=== PATIENT | female | born 1945 | race Caucasian/White ===

== ENCOUNTER 2021-09-02 17:04 | Emergency (ER) | payer OTHER ==
--- OUTSIDE RECORDS SUMMARY | 2021-09-02 17:07 | XMS REPORT | Continuity of Care Document ---
:1945 Author Organization [facility] t Address [facility]3 [address] [place] [address] Care Team Providers Name Role Phone Justino Sotomayor DO Primary Care Physician Charli Attending Clinician Unavailable Sotero Attending Clinician Unavailable Charli Admitting Clinician Unavailable Sotero Admitting Clinician Unavailable Payers Payer Name Policy Type Policy Number Effective Date Expiration Date S jonatanFormerly [facility] [place] [id number] (MEDICARE 00:00:00 REPLACEMENT/ADVANTA GE - HMO) MEDIC[place] B-[place]: [id number] 2012 Get[employer]ugu 00:00:00 [facility] - AARP - [id number] MEDICARE SOLUTIONS - MEDICARE COMPLETE (MEDICARE REPLACEMENT PPO) [employer] (MEDICARE [id number] REPLACEMENT/ADVANTA GE - PPO) Problems Condition Condition Condition Status Onset Resolution Last Treating Co mments Source Name Details Category Date Date Treatment Clinician Date Hypokalemi Hypokalemi Problem Active M [facility] a a 2-28 da 00:00: Medical 00 Group Type 2 Type 2 Problem Active [place] diabetes Diabetes 2-23 da mellitus Mellitus 00:00: Medica l without without 00 Group complicati Complicati on on Pruritus Pruritus Problem Active [place] of skin of Skin 2-23 da 00:00: Medical 00 Group 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 00:00: Medical syndrome Syndrome 00 Group 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 e Raised 00:00: Medica l 00 Group Seborrheic Seborrheic Problem Active M [facility] dermatitis Dermatitis 2-14 da of scalp of Scalp 00:00: Medica l 00 Group Diabetes Diabetes Problem Active 2018-05 [place] mellitus Mellitus 1-12 da 00:00: Medical 00 Group Neuropathy Neuropathy Problem Active 2018-05 M [facility] 112 da 00:00: Medical 00 Group Gastroesop Gastroesop Problem Active 2018-05 M [facility] hageal hageal 1-12 da reflux Reflux 00:00: Medical disease Disease 00 Group Malignant Malignant Problem Active [facility] lymphoma Lymphoma da Medical Group Type 2 Type 2 Problem Active [place] diabetes Diabetes da mellitus Mellitus Medica l Group Hyperlipid Hyperlipid Problem Active M [facility] emia emia [facility] Sinusitis Sinusitis Problem Active [place] [facility] Congestion Congestion Problem Active M [facility] of nasal of Nasal da sinus Sinus Medical Group Pneumonia Pneumonia Problem Active [facility] Acute Acute Problem Active [place] respirator Respirator da y y Medical infections Infections Gr oup Gastritis Gastritis Problem Active [facility] 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 Social History Social Habit Start Date Stop Date Quantity Comments Source Sex Assigned At [facility] Alcohol intake 2016-03-09 2016-03-09 Current [facility] es - 00:00:00 00:00:00 non-drinker of Medical Ce nter alcohol (finding) Smoking Status Start Date Stop Date Source Former Smoker [facility] Never smoker [facility] Medications Ordered Filled Start Stop Current Ordering Indication Dosage Frequency Signature Comments Components Source Medication Medication Date Date Medication? Clinician (SIG) Name Name frida 2015-05 Yes 1000mg QD Take 1,[address] bark 500 mg 0-28 [facility] - capsule 09:13: mouth Medical 12 daily. [place] chromium 2015-05 Yes Take by [facility] picolinate 0-28 [facility]. [facility] - 200 mcg Cap 09:13: Medica l 12 [place] melatonin 3 2015-05 Yes Take by [facility] mg Tab 0-28 [facility]. [facility] - 09:13: Medical 12 [place] aspirin 81 2015-05 Yes 162mg QD Take [address] MG EC 0-28 mg by [facility] - tablet 09:13: mouth Medical 12 daily. [place] insulin 2015-05 Yes 18U QD Inject 18 [facility] glargine 0-28 Units [facility] - (LANTUS) 09:13: subcutaneo Med ical 100 unit/mL 12 usly [place] injection nightly Use as directed . multivitami 2015-05 Yes 1{tbl} QD Take [address] n per 0-28 tablet by [facility] - tablet 09:13: mouth Medical 12 daily. [place] insulin 2015-05 Yes 4U Inject [address] aspart 0-28 Units [facility] - (NOVOLOG) 09:13: subcutaneo Me dical 100 unit/mL [address] [place] [address] InPn (three) times daily with meals. omeprazole 2015-05 Yes 20mg QD Take [address] (PRILOSEC) 0-28 by mouth [facility] - 20 MG 09:13: daily. Medical capsule 12 [place] cinnamon 2015-05 Yes 1000mg QD Take 1,[address] bark 500 mg 0-28 mg by [facility] - capsule 09:13: mouth Medical 12 daily. [place] chromium 2015-05 Yes Take by [facility] picolinate 0-28 mouth. [facility] - 200 mcg Cap 09:13: Medica l 12 [facility] 2015-05 Yes 1000mg QD Take 1,[address] bark 500 mg 0-28 mg by [facility] - capsule 09:13: mouth Medical 12 daily. [place] melatonin 3 2015-05 Yes Take by [facility] mg Tab 0-28 mouth. [facility] - 09:13: Medical 12 [place] aspirin 81 2015-05 Yes 162mg QD Take [address] MG EC 0-28 mg by [facility] - tablet 09:13: mouth Medical 12 daily. [place] insulin 2015-05 Yes 18U QD Inject 18 [facility] glargine 0-28 Units [facility] - (LANTUS) 09:13: subcutaneo Med ical 100 unit/mL 12 usly Center injection nightly Use as directed . multivitami 2015-05 Yes 1{tbl} QD Take [address] n per 0-28 tablet by [facility] - tablet 09:13: mouth Medical 12 daily. [place] insulin 2015-05 Yes 4U Inject [address] aspart 0-28 Units [facility] - (NOVOLOG) 09:13: subcutaneo Me dical 100 unit/mL 12 usly 3 [place] InPn (three) times daily with meals. omeprazole 2015-05 Yes 20mg QD Take [address] (PRILOSEC) 0-28 by mouth [facility] - 20 MG 09:13: daily. Medical capsule 12 [place] cinnamon 2015-05 Yes 1000mg QD Take 1,[address] bark 500 mg 0-28 mg by [facility] - capsule 09:13: mouth Medical 12 daily. [place] chromium 2015-05 Yes Take by [facility] picolinate 0-28 mouth. [facility] - 200 mcg Cap 09:13: Medica l 12 [place] melatonin 3 2015-05 Yes Take by [facility] mg Tab 0-28 mouth. [facility] - 09:13: Medical 12 [place] aspirin 81 2015-05 Yes 162mg QD Take [address] MG EC 0-28 mg by [facility] - tablet 09:13: mouth Medical 12 daily. [place] chromium 2015-05 Yes Take by [facility] picolinate 0-28 mouth. [facility] - 200 mcg Cap 09:13: Medica l 12 [place] insulin 2015-05 Yes 18U QD Inject 18 [facility] glargine 0-28 Units [facility] - (LANTUS) 09:13: subcutaneo Med ical 100 unit/mL 12 usly Center injection nightly Use as directed . multivitami 2015-05 Yes 1{tbl} QD Take [address] n per 0-28 tablet by [facility] - tablet 09:13: mouth Medical 12 daily. [place] insulin 2015-05 Yes 4U Inject [address] aspart 0-28 Units [facility] - (NOVOLOG) 09:13: subcutaneo Me dical 100 unit/mL 12 usly 3 [place] InPn (three) times daily with meals. omeprazole 2015-05 Yes 20mg QD Take [address] (PRILOSEC) 0-28 by mouth [facility] - 20 MG 09:13: daily. Medical capsule 12 Center melatonin 3 2015-05 Yes Take by [facility] mg Tab 0-28 mouth. [facility] - 09:13: Medical 12 [place] aspirin 81 2015-05 Yes 162mg QD Take [address] MG EC 0-28 mg by [facility] - tablet 09:13: mouth Medical 12 daily. [place] insulin 2015-05 Yes 18U QD Inject 18 [facility] glargine 0-28 Units [facility] - (LANTUS) 09:13: subcutaneo Med ical 100 unit/mL 12 usly Center injection nightly Use as directed . multivitami 2015-05 Yes 1{tbl} QD Take [address] n per 0-28 tablet by [facility] - tablet 09:13: mouth Medical 12 daily. [place] insulin 2015-05 Yes 4U Inject [address] aspart 0-28 Units [facility] - (NOVOLOG) 09:13: subcutaneo Me dical 100 unit/mL 12 usly 3 [place] In (three) times daily with meals. omeprazole 2015-05 Yes 20mg QD Take [address] (PRILOSEC) 0-28 by mouth [facility] - 20 MG 09:13: daily. Medical capsule 12 [place] gabapentin 2015-05 Yes 300mg Q.[id number] Take [address] (NEURONTIN) 0-28 [id number] mg by L ukes - 300 MG 09:12: 3D mouth 3 Medical capsule 25 (three) Center times daily. gabapentin 2015-05 Yes 300mg Q.[id number] Take [address] (NEURONTIN) 0-28 [id number] mg by L ukes - 300 MG 09:12: 3D mouth 3 Medical capsule 25 (three) Center times daily. gabapentin 2015- Yes 300mg Q.[id number] Take [address] (NEURONTIN) 0-28 [id number] mg by L ukes - 300 MG 09:12: 3D mouth 3 Medical capsule 25 (three) Center times daily. gabapentin 2015-05 Yes 300mg Q.[id number] Take [address] (NEURONTIN) 0-28 [id number] mg by L ukes - 300 MG 09:12: 3D mouth 3 Medical capsule 25 (three) Center times daily. alendronate alendronate No alendronat [place] 70 mg 70 mg e 70 mg da tablet TAKE tablet TAKE tablet Medical 1 TABLET BY 1 TABLET BY TAKE 1 Group MOUTH EVERY MOUTH EVERY TABLET BY WEEK WEEK MOUTH EVERY WEEK Farxiga 10 Farxiga 10 No Farxiga 10 [place] mg tablet mg tablet mg tablet da TAKE 1 TAKE 1 TAKE 1 Medical TABLET BY TABLET BY TABLET BY Group MOUTH EVERY MOUTH EVERY MOUTH DAY DAY EVERY DAY gabapentin gabapentin No gabapentin [place] 300 mg 300 mg 300 mg da capsule capsule capsule Medica l TAKE 2 TAKE 2 TAKE 2 Group TABLETS BY TABLETS BY TABLETS BY MOUTH TWICE MOUTH TWICE MOUTH DAILY DAILY TWICE DAILY ketoconazol ketoconazol No ketoconazo [place] e 2 % e 2 % le 2 % da shampoo shampoo shampoo Medica l APPLY TO APPLY TO APPLY TO Do up THE THE THE AFFECTED AFFECTED AFFECTED AREA(S), AREA(S), AREA(S), LATHER, LATHER, LATHER, LEAVE IN LEAVE IN LEAVE IN PLACE FOR [address] FOR MINUTES, MINUTES, 5 MINUTES, AND THEN AND THEN AND THEN RINSE OFF RINSE OFF RINSE OFF WITH WATER WITH WATER WITH WATER BY TOPICAL BY TOPICAL BY TOPICAL ROUTE ONCE ROUTE ONCE ROUTE ONCE DAILY DAILY DAILY levetiracet levetiracet No levetirace [place] am 500 mg am 500 mg mathew 500 mg da tablet TAKE tablet TAKE tablet Medical 1 TABLET BY 1 TABLET BY TAKE 1 Group MOUTH TWICE MOUTH TWICE TABLET BY DAILY DAILY MOUTH TWICE DAILY memantine 5 memantine 5 No memantine [place] mg tablet mg tablet 5 mg da TAKE 1 TAKE 1 tablet Medical TABLET BY TABLET BY TAKE 1 Do up MOUTH EVERY MOUTH EVERY TABLET BY DAY DAY MOUTH EVERY DAY metformin metformin No metformin [place] 500 mg 500 mg 500 mg da tablet TAKE tablet TAKE tablet Medical 1 TABLET BY 1 TABLET BY TAKE 1 Group MOUTH TWICE MOUTH TWICE TABLET BY DAILY DAILY MOUTH TWICE DAILY mirtazapine mirtazapine No mirtazapin [place] 15 mg 15 mg e 15 mg da tablet Take tablet Take tablet Medical 1 tablet 1 tablet Take 1 Group every day every day tablet by oral by oral every day route at route at by oral bedtime for bedtime for route at 30 days. 30 days. bedtime for 30 days. naproxen naproxen No naproxen [place] take one take one take one da bid bid bid Medical Group Os-Travis 500 Os-Travis 500 No 1 BID Os-Travis 500 [place] + D3 500 + D3 500 + D3 500 da mg-15 mcg mg-15 mcg mg-15 mcg Medical (600 unit) (600 unit) (600 unit) Group tablet Take tablet Take tablet 1 tablet 1 tablet Take 1 twice a day twice a day tablet by oral by oral twice a route for route for day by 30 days. 30 days. oral route for 30 days. permethrin permethrin No permethrin [place] 5 % topical 5 % topical 5 % d a cream APPLY cream APPLY topical Medical (THOROUGHLY (THOROUGHLY cream Group MASSAGE MASSAGE APPLY INTO SKIN INTO SKIN (THOROUGHL FROM HEAD FROM HEAD Y MASSAGE TO SOLES OF TO SOLES OF INTO SKIN FEET) BY FEET) BY FROM HEAD TOPICAL TOPICAL TO SOLES ROUTE ONCE ROUTE ONCE OF FEET) LEAVE ON LEAVE ON BY TOPICAL FOR 8-14 FOR 8-14 ROUTE ONCE HR, THEN HR, THEN LEAVE ON REMOVE BY REMOVE BY FOR 8-14 THOROUGH THOROUGH HR, THEN WASHING WASHING REMOVE BY THOROUGH WASHING potassium potassium No 1 Q1D potassium [place] chloride ER chloride ER chloride da 10 mEq 10 mEq ER 10 mEq Medica l tablet,exte tablet,exte tablet,ext Group nded nded ended release release release Take 1 Take 1 Take 1 tablet tablet tablet every day every day every day by oral by oral by oral route for route for route for 10 days. 10 days. 10 days. rosuvastati rosuvastati No rosuvastat [place] n 10 mg n 10 mg in 10 mg da tablet TAKE tablet TAKE tablet Medical 1 TABLET BY 1 TABLET BY TAKE 1 Group MOUTH EVERY MOUTH EVERY TABLET BY DAY DAY MOUTH EVERY DAY Immunizations Ordered Immunization Filled Immunization Date Status Commen ts Source Name Name influenza, influenza, 2021-02-13 Completed [facility] injectable, injectable, 00:00:00 Medical Grou p quadrivalent quadrivalent COVID-19, mRNA, COVID-19, mRNA, 2020-06-20 Completed Darrion marshall LNP-S, PF, 100 LNP-S, PF, 100 00:00:00 Medica l Group mcg/0.5 mL dose mcg/0.5 mL dose (Moderna) (Moderna) Influenza vaccine, Influenza vaccine, 2020-03-05 Completed [facility] quadrivalent, quadrivalent, 11:26:42 Medical Group adjuvanted adjuvanted influenza, high dose influenza, high 2019-03-27 Completed [facility] seasonal dose seasonal 12:52:05 Medical Do up influenza, influenza, 2012-05-16 Completed [facility] injectable, injectable, 00:00:00 Medical Grou p quadrivalent quadrivalent pneumococcal, pneumococcal, 2001-05-16 Completed [place] a unspecified unspecified 00:00:00 Medical Grou p formulation formulation Vital Signs Vital Name Observation Time Observation Value Comments Source BP Diastolic 2021-08-03 00:00:00 69 mm[Hg] [facility] Height 2021-08-03 00:00:00 63 [in_i] [facility] BMI (Body Mass 2021-08-03 00:00:00 18.2 kg/m2 [facility] Medical Index) Group BP Systolic 2021-08-03 00:00:00 116 mm[Hg] [facility] Body Weight 2021-08-03 00:00:00 1640 [oz_av] [facility] BP Diastolic 2021-07-13 00:00:00 65 mm[Hg] [facility] Height 2021-07-13 00:00:00 63 [in_i] [facility] BMI (Body Mass 2021-07-13 00:00:00 18.1 kg/m2 [facility] Medical Index) Group BP Systolic 2021-07-13 00:00:00 111 mm[Hg] [facility] Body Weight 2021-07-13 00:00:00 1639 [oz_av] [facility] Height 2021-06-29 00:00:00 63 [in_i] [facility] BMI (Body Mass 2021-06-29 00:00:00 18.1 kg/m2 [facility] Medical Index) Group BP Systolic 2021-06-29 00:00:00 122 mm[Hg] [facility] Body Weight 2021-06-29 00:00:00 1632 [oz_av] [facility] BP Diastolic 2021-06-29 00:00:00 72 mm[Hg] [facility] BP Diastolic 2021-05-04 00:00:00 73 mm[Hg] [facility] Height 2021-05-04 00:00:00 63 [in_i] [facility] BMI (Body Mass 2021-05-04 00:00:00 19.5 kg/m2 [facility] Medical Index) Group BP Systolic 2021-05-04 00:00:00 125 mm[Hg] [facility] Body Weight 2021-05-04 00:00:00 1760 [oz_av] [facility] BP Diastolic 2020-03-05 00:00:00 81 mm[Hg] [facility] Height 2020-03-05 00:00:00 63 [in_i] [facility] BMI (Body Mass 2020-03-05 00:00:00 22 kg/m2 [facility] Medical Index) Group BP Systolic 2020-03-05 00:00:00 131 mm[Hg] [facility] Body Weight 2020-03-05 00:00:00 1991 [oz_av] [facility] BP Diastolic 2019-06-05 00:00:00 81 mm[Hg] [facility] Height 2019-06-05 00:00:00 63 [in_i] [facility] BMI (Body Mass 2019-06-05 00:00:00 22.5 kg/m2 [facility] Medical Index) Group BP Systolic 2019-06-05 00:00:00 130 mm[Hg] [facility] Body Weight 2019-06-05 00:00:00 2032 [oz_av] [facility] BP Diastolic 2019-03-27 00:00:00 85 mm[Hg] [facility] Height 2019-03-27 00:00:00 63 [in_i] [facility] BMI (Body Mass 2019-03-27 00:00:00 21.3 kg/m2 [facility] Medical Index) Group BP Systolic 2019-03-27 00:00:00 151 mm[Hg] [facility] Body Weight 2019-03-27 00:00:00 1920 [oz_av] [facility] Procedures Procedure Date / Time Performing Clinician Source Performed MAMMO, screening, digital, 2020-03-05 00:00:00 [facility] XR, lumbar spine 2019-03-27 00:00:00 Anne Lopez edical Group DEXA 2019-03-27 00:00:00 Anne Pr dical Group MAMMO, screening, digital, 2019-03-27 00:00:00 [facility] Cardiac Surgery Procedure 2015-05-16 00:00:00 [facility] Diagnostic Colonoscopy 2014-12-30 00:00:00 Juan Diego mckeon Medical [facility] Egd Biopsy Single/multiple 2014-12-30 00:00:00 [facility] Laparoscopic 2002-05-16 00:00:00 Anne Pr dical Cholecystectomy Group Anesth Tubal Ligation 1984-05-16 00:00:00 Miroslava customer care specialist Medical Group Tubal Ligation 1984-05-16 00:00:00 [facility] Pr dical Group Needle Biopsy Lymph Nodes [facility] customer care specialist Medical Group Plan of Care Planned Activity Planned Date Details Comments Source Future Appointment 2021-11-03 Juan Diego Lees 00:00:[address] [place] [address] Group [address]; , [place] [address] Encounters Start End Encounter Admission Attending Care Care Encounter Source Date/Time Date/Time Type Type Clinicians Facility Department ID 2021-08-03 2021-08-03 Outpatient Zuniga_F [facility] [id number] [place] 04:32:00 04:32:00 321 [facility] 2021-08-03 2021-08-03 Outpatient Zuniga_F [facility] [id number] [place] 04:32:00 04:32:00 322 da Medical Group 2021-08-03 2021-08-03 Outpatient Zuniga_F [facility] [id number] [place] 04:32:00 04:32:00 407 da Medical Group 2021-08-03 2021-08-03 Sebastian BYRD [place] - [id number] [place] 00:00:00 00:00:00 Tameka Flores Medical MD: [address] [phone] , Ph. 2021-07-13 2021-07-13 Outpatient Zuniga_F [facility] [id number] [place] 11:45:00 11:45:00 228 da [facility] Group 2021-07-13 2021-07-13 Sebastian MM [place] - [id number] [place] 00:00:00 00:00:00 Tameka Flores Medical MD: [address] [place] [phone] , Ph. 2021-06-30 2021-06-30 Outpatient Zuniga_F [facility] [id number] [place] 09:41:00 09:41:00 225 da Medical Group 2021-06-29 2021-06-29 Outpatient Zuniga_F [facility] [id number] [place] 12:58:00 12:58:00 214 da Medical Group 2021-06-29 2021-06-29 Camila [facility] [place] - [id number] [place] 00:00:00 00:00:00 Discovery boone Trim[employer] MANAGEMENT AIDE-C: [address] [place] [phone] , Ph. 2021-06-09 2021-06-09 Outpatient Zuniga_F [facility] [id number] [place] 03:47:00 03:47:00 125 da Medical Group 2021-06-09 2021-06-09 Outpatient Zuniga_F [facility] [id number] [place] 03:47:00 03:47:00 131 da Medical Group 2021-06-09 2021-06-09 Sebastian MMG [place] - [id number] [place] 00:00:00 00:00:00 RaghuTameka Rodriguez MD: 600 [facility] [address], [place] [address] , Ph. 2021-05-04 2021-05-04 Outpatient Zuniga_F MMG [facility] [id number] [place] 11:45:00 11:45:00 220 da Medical Group 2021-05-04 2021-05-04 Outpatient Zuniga_F [facility] [id number] [place] 11:45:00 11:45:00 124 da [facility] Group 2021-05-04 2021-05-04 Sebastian MMG [place] - [id number] [place] 00:00:00 00:00:00 Tameka Flores MD: [address] [place] [address], [place] [address] , Ph. 2020-06-25 2020-06-25 Outpatient Zuniga_F [facility] [id number] [place] 03:18:00 03:18:00 210 da Medical Group 2020-06-24 2020-06-24 Outpatient Zuniga_F [facility] [id number] [place] 11:10:00 11:10:00 209 [facility] Group 2020-04-02 2020-04-02 Outpatient Zuniga_F [facility] [id number] [place] 02:48:00 02:48:00 208 da Medical Group 2020-04-02 2020-04-02 Outpatient Zuniga_F [facility] [id number] [place] 02:48:00 02:48:00 118 da [facility] Group 2020-03-05 2020-03-05 Outpatient Zuniga_F [facility] [id number] [place] 10:48:00 10:48:00 021 da Medical Group 2020-03-05 2020-03-05 Sebastian MMG [place] - [id number] [place] 00:00:00 00:00:00 Tameka Flores MD: [address] [place] [address], [place] [address] , Ph. 2020-03-04 2020-03-04 Outpatient Zuniga_F [facility] [id number] [place] 04:08:00 04:08:00 020 da Medical Group 2020-02-12 2020-02-12 Outpatient Zuniga_F [facility] [id number] [place] 05:38:00 05:38:00 929 da Medical Group 2020-02-08 2020-02-08 Outpatient Zuniga_F [facility] [id number] [place] 10:22:00 10:22:00 925 Medical Group 2019-08-05 2019-08-05 Outpatient Young_J [facility] [id number] [place] 05:44:00 05:44:00 322 Medical Group 2019-06-05 2019-06-05 Outpatient Young_J [facility]G [id number] [place] 10:16:00 10:16:00 121 Medical Group 2019-06-05 2019-06-05 [facility] [place] - [id number] [place] 00:00:00 00:00:00 Tameka Flores MD: [address] [place] [address], [place] [address] , Ph. 2019-03-27 2019-03-27 Sebastian MMG [place] - [id number] [place] 00:00:00 00:00:00 Tameka Flores MD: [address] [place] [address], [place] [address] , Ph. Results Test Description Test Time Test Comments Results Result Comments Source Basic metabolic 2000 panel - Serum or Plasma 2021-07-13 11:4 1:00 Test Item Value Reference Range Interpretation Comme nts Glucose [Mass/volume] in Serum or Plasma (test code = 222 mg/dL 82-115 H 2345-7) Urea nitrogen [Mass/volume] in Serum or Plasma (test code = 11 mg/d L 01-05 3094-0) osmolality calculated,serum (test code = osmolality 280 mOsm/kg 28 0-300 calculated,serum) creatinine (test code = creatinine) 0.66 mg/dL 0.50-0.90 glomerular filtration rate (test code = glomerular >60.00 filtration rate) Urea nitrogen/Creatinine [Mass Ratio] in Serum or Plasma 16.7 12.0-20.0 (test code = 3097-3) sodium level (test code = sodium level) 137 mmol/L 135-145 potassium level (test code = potassium level) 3.8 mmol/L 3.5-5.2 chloride level (test code = chloride level) 94 mmol/L 98-108 L CO2 (test code = CO2) 26 mmol/L 21-32 anion gap (test code = anion gap) 20.8 mEq/L 12.0-20.0 H calcium level (test code = calcium level) 9.3 mg/dL 8.8-10.2 [facility] - Serum or Plasma 2021-06-30 00:00:00 Test Item Value Reference Range Interpretation Comments Glucose [Mass/volume] in Serum 182 mg/dL 65-99 H or Plasma (test code = 2345-7) Urea nitrogen [Mass/volume] in 8 mg/dL 8-27 Serum or Plasma (test code = 3094-0) Creatinine [Mass/volume] in 0.77 mg/dL 0.57-1.00 Serum or Plasma (test code = 2160-0) Glomerular filtration 76 mL/min/1.73 >59 rate/1.73 sq M.predicted among non-blacks [Volume Rate/Area] in Serum, Plasma or Blood by Creatinine-based formula (CKD-EPI) (test code = 12286-1) Glomerular filtration 88 mL/min/1.73 >59 rate/1.73 sq M.predicted among blacks [Volume Rate/Area] in Serum, Plasma or Blood by Creatinine-based formula (CKD-EPI) (test code = 17118-6) Urea nitrogen/Creatinine [Mass 10 12-28 L Ratio] in Serum or Plasma (test code = 3097-3) Sodium [Moles/volume] in Serum 143 mmol/L 134-144 or Plasma (test code = 2951-2) Potassium [Moles/volume] in 3.1 mmol/L 3.5-5.2 L Serum or Plasma (test code = 2823-3) Chloride [Moles/volume] in 97 mmol/L 96-106 Serum or Plasma (test code = 2074-0) Carbon dioxide, total 21 mmol/L 20-29 [Moles/volume] in Serum or Plasma (test code = 2027-) Calcium [Mass/volume] in Serum 9.3 mg/dL 8.7-10.3 or Plasma (test code = 03798-5) Protein [Mass/volume] in Serum 6.0 g/dL 6.0-8.5 or Plasma (test code = 2885-2) Albumin [Mass/volume] in Serum 4.0 g/dL 3.7-4.7 or Plasma (test code = 175-7) Globulin [Mass/volume] in 2.0 g/dL 1.5-4.5 Serum by calculation (test code = 01069-2) Albumin/Globulin [Mass Ratio] 2.0 1.2-2.2 in Serum or Plasma (test code = 175-0) Bilirubin.total [Mass/volume] 0.4 mg/dL 0.0-1.2 in Serum or Plasma (test code = 1974-) Alkaline phosphatase 117 IU/L 44-121 [Enzymatic activity/volume] in Serum or Plasma (test code = 6768-6) Aspartate aminotransferase 18 IU/L 0-40 [Enzymatic activity/volume] in Serum or Plasma (test code = 192-8) Alanine aminotransferase 14 IU/L 0-32 [Enzymatic activity/volume] in Serum or Plasma (test code = 174-6) [facility] - Serum or [id number] 00:00:00 Test Item Value Reference Range Interpretation Comments Cholesterol [Mass/volume] in Serum 118 mg/dL 100-199 or Plasma (test code = 2092-3) Triglyceride [Mass/volume] in Serum 124 mg/dL 0-149 or Plasma (test code = 2571-8) Cholesterol in HDL [Mass/volume] in 52 mg/dL >39 Serum or Plasma (test code = 2084-9) Cholesterol in VLDL [Mass/volume] 22 mg/dL 5-40 in Serum or Plasma by calculation (test code = 32313-4) Cholesterol in LDL [Mass/volume] in 44 mg/dL 0-99 Serum or Plasma by calculation (test code = 66636-6) Laboratory comment [Text] 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 (test code = 88045-0) [facility] - [id number] 00:00:00 Test Item Value Reference Range Interpretation Comments Hepatitis A virus IgM Ab [Presence] negative negative in Serum or Plasma by Immunoassay (test code = 13606-7) Hepatitis B virus surface Ag negative negative [Presence] in Serum or Plasma by Immunoassay (test code = 5196-1) Hepatitis B virus core IgM Ab negative negative [Presence] in Serum or Plasma by Immunoassay (test code = 94895-0) Hepatitis C virus Ab Signal/Cutoff <0.1 0.0-0.9 in Serum or Plasma by Immunoassay (test code = 37560-7) [facility] [Mass/volume] in [id number] 00:00:00 Test Item Value Reference Range Interpretation Comments Hemoglobin A1c/Hemoglobin.total in 10.3 % 4.8-5.6 H Blood (test code = 4548-4) Glucose mean value [Mass/volume] in 249 mg/dL Blood Estimated from glycated hemoglobin (test code = 17940-2) [facility] [id number] 00:00:00 Test Item Value Reference Range Interpretation Comments [facility] blood collection sent to [facility] (test code = [facility] blood collection) [facility] [id number] 00:00:00 Test Item Value Reference Range Interpretation Comments [facility] blood collection sent to [facility] (test code = [facility] blood collection) [facility] Ag [Presence] in Respiratory specimen by Rapid [id number] 11:27:00 Test Item Value Reference Range Interpretation Comments SARS-CoV - 2 (test code = SARS-CoV - negative 2) [facility]
--- NOTE | 2021-09-02 17:56 | RAD REPORT ---
EXAM DESCRIPTION: CT - Head C Spine Mpr Wo Con - 09/02/2021 5:40 pm CLINICAL HISTORY: Head and neck injury status post fall. Head and neck pain COMPARISON: None. TECHNIQUE: Computed axial tomography of the head and cervical spine was obtained. Sagittal and coronal reconstruction was performed. All CT scans are performed using dose optimization technique as appropriate and may include automated exposure control or mA/KV adjustment according to patient size. FINDINGS: Left frontal scalp swelling. Mild low-density areas within periventricular, deep and subcortical white matter likely ischemic mora ges secondary to small vessel disease An intracranial bleed is not seen. The ventricles are normal in caliber. An extra-axial fluid collect ion is not noted.Fluid within the visualized sinuses and mastoids is not seen A cervical fracture is not visualized. No dislocation is noted. IMPRESSION: No acute intracranial abnormality is seen. A cervical fracture is not visualized. If the patient continues to have symptoms to suggest intracra nial /spinal cord pathology then MRI would be recommended
--- NOTE | 2021-09-02 19:48 | EDPHYS ---
Physician Documentation [facility] Name: Zita Reeves Age: 76 yrs Sex: Female : 1945 Arrival Date: 09/02/2021 Time: 17:07 Bed 18 Private MD: Arpit Freeman F ED Physician Anil Borja HPI: 09/02 17:30 This 76 yrs old Female presents to ER via Ambulatory with complaints of Fall Injury, cp Laceration To Head. 17:30 The patient or guardian reports injury. cp 17:30 The complaints affect the forehead. Context of injury: The problem was sustained cp outdoors, resulted from a fall. Onset: The symptoms/episode began/occurred today. Associated signs and symptoms: Pertinent negatives: neck pain, vomiting, weakness in extremities, generalized weakness. Historical: - Allergies: 17:13 No Known Allergies; ab2 - PMHx: 17:13 Diabetes mellitus; Seizure; ab2 - Immunization history:: Adult Immunizations up to date. - Social history:: Smoking status: Patient denies any tobacco usage or history of. ROS: 17:35 Constitutional: Negative for body aches, chills, fever, poor PO intake. cp 17:35 Neck: Negative for pain with movement, pain at rest, stiffness. cp 17:35 Cardiovascular: Negative for chest pain. 17:35 Respiratory: Negative for cough, shortness of breath, wheezing. 17:35 Abdomen/GI: Negative for abdominal pain, vomiting, diarrhea, constipation. 17:35 Back: Negative for pain at rest, pain with movement. 17:35 Neuro: Negative for altered mental status, numbness, seizure activity, syncope, weakness. 17:35 All other systems are negative. Exam: 17:40 Constitutional: The patient appears in no acute distress, alert, awake, cp non-diaphoretic, non-toxic, well developed, well nourished. 17:40 Head/face: Noted is a laceration(s), that is superficial, of the forehead, swelling, cp that is mild, of the forehead. 17:40 Eyes: Periorbital structures: appear normal, Pupils: equal, round, and reactive to light and accomodation, Extraocular movements: intact throughout, Conjunctiva: normal, no exudate, no injection, Lids and lashes: appear normal, bilaterally. 17:40 ENT: External ear(s): are unremarkable, Nose: is normal, Mouth: Lips: moist, Oral mucosa: moist, Posterior pharynx: Airway: no evidence of obstruction, patent. 17:40 Neck: C-spine: vertebral tenderness, is not appreciated, crepitus, is not appreciated, ROM/movement: is normal, is supple, without pain, no range of motions limitations. 17:40 Chest/axilla: Inspection: normal. 17:40 Cardiovascular: Rate: tachycardic, Edema: is not appreciated, JVD: is not appreciated. 17:40 Respiratory: the patient does not display signs of respiratory distress, Respirations: normal, no use of accessory muscles, no retractions, labored breathing, is not present. 17:40 Abdomen/GI: Inspection: abdomen appears normal, Palpation: abdomen is soft and non-tender, in all quadrants. 17:40 Back: pain, is absent, ROM is normal. 17:40 Neuro: Orientation: to person, place \T\ time. Mentation: able to follow commands, Cerebellar function: Sensation: no obvious gross deficits. Vital Signs: 17:14 BP 138 / 82; Pulse 101; Resp 17; Temp 97.9; Pulse Ox 100% on R/A; Weight 58.97 kg; ab2 Height 5 ft. 3 in. (160.02 cm); Pain 7/10; 19:23 BP 142 / 61; Pulse 91; Resp 16 S; Pulse Ox 99% on R/A; bb 20:11 BP 143 / 68; Pulse 88; Resp 16 S; Pulse Ox 100% on R/A; bb 17:14 Body Mass Index 23.03 (58.97 kg, 160.02 cm) ab2 Timewell Coma Score: 17:30 Eye Response: spontaneous(4). Verbal Response: oriented(5). Motor Response: obeys cp commands(6). Total: 15. 19:46 Eye Response: spontaneous(4). Verbal Response: oriented(5). Motor Response: obeys cp commands(6). Total: 15. MDM: 17:23 Patient medically screened. [facility] 19:46 Data reviewed: vital signs, nurses notes, radiologic studies, CT scan. 19:46 Differential diagnosis: Contusion of Hematoma on Laceration of Intracranial bleed- cp Concussion cerebral contusion. Counseling: I had a detailed discussion with the patient and/or guardian regarding: the historical points, exam findings, and any diagnostic results supporting the discharge/admit diagnosis, radiology results, to return to the emergency department if symptoms worsen or persist or if there are any questions or concerns that arise at home. 09/02 17:13 Order name: CT Head C Spine [facility] [place] 09/02 17:17 Order name: Head C Spine Mpr Wo Con; Complete Time: 19:21 EDDC 09/02 19:21 Interpretation: Report reviewed. cp 09/02 17:13 Order name: Ice pack; Complete Time: 17:25 wagner 09/02 19:44 Order name: Wound dressing; Complete Time: 20:09 cp Administered Medications: No medications were administered Disposition Summary: 09/02/21 19:47 Discharge Ordered Location: Home cp Problem: new cp Symptoms: have improved cp Condition: Stable cp Diagnosis - Contusion of unspecified part of head, initial encounter cp - Concussion with loss of consciousness of unspecified duration cp Followup: cp - With: Private Physician - When: 1 - 2 days - Reason: Worsening of condition Discharge Instructions: - Discharge Summary Sheet cp - Concussion, Adult cp - Facial or Scalp Contusion cp - Head Injury, Adult cp Forms: - Medication Reconciliation Form cp - Thank You Letter cp - Antibiotic Education cp - Prescription Opioid Use cp Addendum: 09/04/2021 07:51 Co-signature as Attending Physician, Anil Borja MD I agree with the assessment and c snyder plan of care. Signatures: Dispatcher [employer] Anil Clement MD MD cha Page, Corey, PA PA Jose Roberto Salazar ab2
--- NOTE | 2021-09-02 19:48 | ER ---
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 Pt is unsure of LOC. Pt c/o headache. Coronavirus screen: Vaccine status: Patient reports receiving the 2nd dose of the covid vaccine. Client denies travel out of the [place] in the last 14 days. At this time, the client does not indicate any symptoms associated with coronavirus-19. Ebola Screen: Patient negative for fever greater than or equal to 101.5 degrees Fahrenheit, and additional compatible Ebola Virus Disease symptoms Patient denies exposure to infectious person. Patient denies travel to an Ebola-affected area in the 21 days before illness onset. No symptoms or risks identified at this time. Initial Sepsis Screen: Does the patient meet any 2 criteria? No. Patient's initial sepsis screen is negative. Does the patient have a suspected source of infection? No. Patient's initial sepsis screen is negative. Risk Assessment: Do you want to hurt yourself or someone else? Patient reports no desire to harm self or others. Onset of symptoms is unknown. 17:14 Method Of Arrival: Ambulatory ab2 17:14 Acuity: KAREN 3 ab2 Triage Assessment: 17:16 General: Appears in no apparent distress. uncomfortable, Behavior is calm, cooperative, ab2 appropriate for age. Pain: Complains of pain in head. Neuro: Level of Consciousness is awake, alert, obeys commands, Oriented to person, place, time, situation, Appropriate for age Receiving Manager are equal bilaterally Moves all extremities. Gait is steady, Speech is normal. Cardiovascular: No deficits noted. Denies chest pain, shortness of breath, Patient's skin is warm and dry. Respiratory: Airway is patent Respiratory effort is even, unlabored, Respiratory pattern is regular, symmetrical, Breath sounds are clear. GI: No deficits noted. No signs and/or symptoms were reported involving the gastrointestinal system. : No deficits noted. No signs and/or symptoms were reported regarding the genitourinary system. Derm: Skin is fragile. Injury Description: Laceration sustained to forehead no active bleeding noted at this time. Historical: - Allergies: 17:13 No Known Allergies; ab2 - PMHx: 17:13 Diabetes mellitus; Seizure; ab2 - Immunization history:: Adult Immunizations up to date. - Social history:: Smoking status: Patient denies any tobacco usage or history of. Screenin:33 Abuse screen: Denies threats or abuse. Nutritional screening: No deficits noted. jd3 Tuberculosis screening: No symptoms or risk factors identified. Fall Risk Gait- Normal/Bed Rest/Wheelchair (0 pts) Mental Status- Oriented to own ability (0 pts). Total Coley Fall Scale indicates No Risk (0-24 pts). Primary Survey: 17:17 NO uncontrolled hemorrhage observed. Breathing/Chest: Respiratory pattern: regular, ab2 Respiratory effort: spontaneous, Breath sounds: clear, Chest inspection: symmetrical rise and fall of the chest. Circulation: Pulses: palpable right radial artery and left radial artery. Disability Alert. Exposure/Environment: There is no evidence of uncontrolled external bleeding. Assessment: 17:30 General: Appears in no apparent distress. comfortable, Behavior is calm, cooperative, jd3 appropriate for age. Pain: Complains of pain in forehead Quality of pain is described as aching, pressure, tender. Neuro: Level of Consciousness is awake, alert, obeys commands, Oriented to person, place, time, situation, Moves all extremities. Full function Speech is normal, Pupils are PERRLA. Cardiovascular: Capillary refill < 3 seconds Patient's skin is warm and dry. Respiratory: Airway is patent Respiratory effort is even, unlabored, Respiratory pattern is regular, symmetrical, Denies cough, shortness of breath. GI: No signs and/or symptoms were reported involving the gastrointestinal system. : No signs and/or symptoms were reported regarding the genitourinary system. EENT: No signs and/or symptoms were reported regarding the EENT system. Derm: Skin is intact, Skin is dry, Skin is normal, Skin temperature is warm Wound noted forehead Wound is small laceration noted to forehead. small amount of blood noted. bleeding stopped with pressure dressing. Musculoskeletal: Circulation, motion, and sensation intact. Range of motion: intact in all extremities. 18:28 Reassessment: Patient appears in no apparent distress at this time. Patient and/or jd3 family updated on plan of care and expected duration. Pain level reassessed. Patient is alert, oriented x 3, equal unlabored respirations, skin warm/dry/pink. resting in bed, call garduno in reach. no distress noted at this time. awaiting results and disposition. 19:23 Reassessment: Patient is alert, oriented x 3, equal unlabored respirations, skin bb warm/dry/pink. Cardiovascular: Capillary refill < 3 seconds Patient's skin is warm and dry. Respiratory: Respiratory effort is even, unlabored, Respiratory pattern is regular. GI: No signs and/or symptoms were reported involving the gastrointestinal system. Derm: abrasion to forehead. Musculoskeletal: Circulation, motion, and sensation intact. 20:10 Reassessment: Patient is alert, oriented x 3, equal unlabored respirations, skin bb warm/dry/pink. pt verbalized understanding of and agrees to plan of care discharge instructions given pt assisted to exit by this RN via wheelchair accompanied by family. Vital Signs: 17:14 BP 138 / 82; Pulse 101; Resp 17; Temp 97.9; Pulse Ox 100% on R/A; Weight 58.97 kg; ab2 Height 5 ft. 3 in. (160.02 cm); Pain 7/10; 19:23 BP 142 / 61; Pulse 91; Resp 16 S; Pulse Ox 99% on R/A; bb 20:11 BP 143 / 68; Pulse 88; Resp 16 S; Pulse Ox 100% on R/A; bb 17:14 Body Mass Index 23.03 (58.97 kg, 160.02 cm) ab2 Yelitza Coma Score: 17:30 Eye Response: spontaneous(4). Verbal Response: oriented(5). Motor Response: obeys cp commands(6). Total: 15. 19:46 Eye Response: spontaneous(4). Verbal Response: oriented(5). Motor Response: obeys cp commands(6). Total: 15. ED Course: 17:07 Patient arrived in ED. as 17:07 Arpit Freeman MD is Private Physician. as 17:12 Anil Borja MD is Attending Physician. wagner 17:13 Anil Turner PA is PHCP. cp 17:16 Triage completed. ab2 17:17 Arm band placed on right wrist. ab2 17:25 Payam Morejon, RN is Primary Nurse. jd3 17:33 Patient has correct armband on for positive identification. Bed in low position. Call jd3 light in reach. Side rails up X 1. Adult w/ patient. Pulse ox on. NIBP on. 17:41 Head C Spine Mpr Wo Con In Process Unspecified. EDMS 19:15 Primary Nurse role handed off by Payam Morejon, ONEYDA carrillo 19:21 Eileen Soler, ONEYDA is Primary Nurse. bb 20:10 Wound care: to abrasion, located on forehead was cleaned with with normal saline bb antibiotic applied covered with a bandaid. 20:11 No provider procedures requiring assistance completed. Patient did not have IV access bb during this emergency room visit. Administered Medications: No medications were administered Outcome: 19:47 Discharge ordered by MD. cp 20:11 Discharged to home via wheelchair, with family. bb 20:11 Condition: stable 20:11 Discharge instructions given to patient, family, Instructed on discharge instructions, follow up and referral plans. Demonstrated understanding of instructions, follow-up care. 20:11 Patient left the ED. bb Signatures: Dispatcher [employer] EDUT Anil Borja MD MD cha Martinez, Amelia as Eileen Soler, RN Anil Rosales PA PA cp Payam Morejon RN RN jJose Roberto Abreu ab2 Corrections: (The following items were deleted from the chart) 19:12 18:28 Reassessment: Patient appears in no apparent distress at this time. No changes jd3 from previously documented assessment. Patient and/or family updated on plan of care and expected duration. Pain level reassessed. Patient is alert, oriented x 3, equal unlabored respirations, skin warm/dry/pink. jd3
[2021-09-03 02:22] VITALS: TEMP 97.9
[2021-09-03 02:41] VITALS: BP 143/68; O2SAT 100
== END 2021-09-02 20:11 | disposition home or self-care (01) ==
LOC: ER 17:04
DX: S06.0X9A Concussion with loss of consciousness of unspecified duration, initial encounter (principal); W19.XXXA Unspecified fall, initial encounter; Y92.89 Other specified places as the place of occurrence of the external cause; E11.9 Type 2 diabetes mellitus without complications
CPT/HCPCS: 70450; 72125; 99283